=== PATIENT | male | born 1990 | race Caucasian/White ===

== ENCOUNTER 2024-07-25 08:38 | Emergency (ER) | payer BC ==
[~2024-07-25] VITALS: Ht 167.6 cm; Wt 84.3 kg
[2024-07-25 09:20] VITALS: BP 124/91
== END 2024-07-25 09:20 | disposition home or self-care (01) ==
LOC: ED 08:38
DX: S60.351A Superficial foreign body of right thumb, initial encounter (principal); W45.8XXA Other foreign body or object entering through skin, initial encounter
CPT/HCPCS: 64450; 99283-25

== ENCOUNTER 2025-07-29 13:41 | Emergency (ER) | payer BC ==
[~2025-07-29] VITALS: Ht 167.6 cm; Wt 79.0 kg
== END 2025-07-29 16:50 | disposition home or self-care (01) ==
LOC: ED 13:41
DX: S91.312A Laceration without foreign body, left foot, initial encounter (principal); Z91.030 Bee allergy status; W26.8XXA Contact with other sharp object(s), not elsewhere classified, initial encounter
CPT/HCPCS: 12002; 73630; 99283